=== PATIENT | female | born 1935 | race Caucasian/White ===

== ENCOUNTER 2019-08-17 14:48 | Outpatient (REF) | payer MEDICARE, MEDICAID, SELFPAY ==
[2019-08-18 15:20] LABS: COVID-19 RT-PCR Result Not Detected ((See Note))
== END 2019-08-17 15:08 ==
LOC: LBN 14:48
PROVIDERS: PCP Family Medicine; Visit Provider Family Medicine
DX: Z03.818 Encounter for observation for suspected exposure to other biological agents ruled out (principal)
CPT/HCPCS: U0003